=== PATIENT | female | born 1975 | race Caucasian/White ===

== ENCOUNTER 2016-04-20 07:39 | Day surgery (SDC) | payer SELFPAY ==
[~2016-04-20] VITALS: Ht 160 cm; Wt 80.3 kg
[~2016-04-20 07:39] MED LIST: CLARITIN 1010 MG/TAB PO; NORCO 325 MG-51 TAB PO; ULTRAM 50MG TAB50 MG PO
[2016-04-20 08:41] VITALS: BP 124/74; PULSE 55; TEMP 97.9
[2016-04-20 10:10] VITALS: BP 127/86; PULSE 50; TEMP 97.3
[2016-04-20 10:25] VITALS: BP 123/74; PULSE 52
[2016-04-20] MEDS ORDERED: BENTYL 10MG10 MG/CAP PO (10:33)
[2016-04-20] MEDS ORDERED: PRILOSEC 20MG20 MG PO (10:34)
[2016-04-20 10:40] VITALS: BP 131/83; PULSE 54
[2016-04-20 11:27] VITALS: BP 142/74; PULSE 42
[2016-04-20 12:20] VITALS: BP 110/73; PULSE 50
== END 2016-04-20 12:01 | disposition home or self-care (01) ==
LOC: SDCO 07:39
DX: K63.5 Polyp of colon (principal); K64.0 First degree hemorrhoids; K44.9 Diaphragmatic hernia without obstruction or gangrene; K29.60 Other gastritis without bleeding; D64.9 Anemia, unspecified; E11.9 Type 2 diabetes mellitus without complications
CPT/HCPCS: OP; J2250; J3010; J7030

== ENCOUNTER 2016-06-01 17:16 | Emergency (ER) | payer SELFPAY ==
[~2016-06-01] VITALS: Ht 157.5 cm; Wt 78.2 kg
[~2016-06-01 17:16] MED LIST changes: +BENTYL 10MG10 MG/CAP PO; +PRILOSEC 20MG20 MG PO
[2016-06-01 17:20] VITALS: TEMP 99.4
[2016-06-01] MEDS ORDERED: FLEXERIL 1010 MG/TAB PO (17:23)
[2016-06-01] MEDS ORDERED: NORCO 325 MG-51 TAB PO (18:50)
[2016-06-01] MEDS ORDERED: DOXYCYCLINE 10100 MG PO (18:50)
[2016-06-01 18:59] VITALS: BP 130/92; PULSE 82
== END 2016-06-01 19:03 | disposition home or self-care (01) ==
LOC: COL.ER 17:16
DX: S51.851A Open bite of right forearm, initial encounter (principal); W54.0XXA Bitten by dog, initial encounter; Y92.009 Unspecified place in unspecified non-institutional (private) residence as the place of occurrence of the external cause; Z23 Encounter for immunization

== ENCOUNTER → 2016-06-10 | Outpatient (CLI) | payer OTHER ==
[~2016-06-10] MED LIST changes: +DOXYCYCLINE 10100 MG PO; +FLEXERIL 1010 MG/TAB PO; +NATURAL IRON65 MG PO
== END ==
LOC: COL.VAS 12:12
DX: R00.1 Bradycardia, unspecified (principal); R55 Syncope and collapse

== ENCOUNTER → 2016-06-11 | Outpatient (CLI) | payer OTHER | LOC: COL.LAB 12:49 → ZLAB.FHCC 12:49 | DX: R11.10 Vomiting, unspecified (principal); G25.9 Extrapyramidal and movement disorder, unspecified; R10.9 Unspecified abdominal pain; M54.9 Dorsalgia, unspecified ==

== ENCOUNTER → 2016-07-09 | Outpatient (CLI) | payer OTHER ==
[2016-07-09 17:21] LABS: MEAN CELL VOLUME 77 fl (80.0-100.0); MEAN CORPUSCULAR HGB CONC 30 g/dl (33.0-37.0); MEAN PLATELET VOLUME 10.6 fl (7.4-10.4); PLATELET COUNT 389 K/mm3 (130-400); RED BLOOD COUNT 4.35 M/mm3 (4.10-5.30); REDCELL DISTRIBUTION WIDTH-CV 17.3 % (11.5-14.5); WHITE BLOOD COUNT 6.2 K/mm3 (4.8-10.8)
[2016-07-09 17:25] LABS: HEMATOCRIT 33.6 % (37.0-47.0); HEMOGLOBIN 10.1 g/dl (12.5-16.0); MEAN CORPUSCULAR HEMOGLOBIN 23 pg (27.0-31.0)
== END ==
LOC: ZLAB.FHCC 17:16
DX: Z01.89 Encounter for other specified special examinations (principal)

== ENCOUNTER → 2016-08-10 | Outpatient (CLI) | payer SELFPAY ==
[2016-08-10 16:18] LABS: MEAN CELL VOLUME 79 fl (80.0-100.0); MEAN CORPUSCULAR HGB CONC 32 g/dl (33.0-37.0); MEAN PLATELET VOLUME 11.7 fl (7.4-10.4); PLATELET COUNT 373 K/mm3 (130-400); RED BLOOD COUNT 4.63 M/mm3 (4.10-5.30); REDCELL DISTRIBUTION WIDTH-CV 21.7 % (11.5-14.5); WHITE BLOOD COUNT 6.5 K/mm3 (4.8-10.8)
[2016-08-10 16:19] LABS: HEMATOCRIT 36.7 % (37.0-47.0); HEMOGLOBIN 11.7 g/dl (12.5-16.0); MEAN CORPUSCULAR HEMOGLOBIN 25 pg (27.0-31.0)
== END ==
LOC: ZLAB.FHCC 14:48 → COL.LAB 14:48
DX: Z02.89 Encounter for other administrative examinations (principal)

== ENCOUNTER 2016-12-12 20:27 | Emergency (ER) | payer SELFPAY ==
[~2016-12-12] VITALS: Ht 157.5 cm; Wt 76.8 kg
[~2016-12-12 20:27] MED LIST changes: -NATURAL IRON65 MG PO
[2016-12-12 20:28] VITALS: BP 126/83; TEMP 98.1
[2016-12-12] MEDS ORDERED: NATURAL IRON65 MG PO (20:31)
[2016-12-12 21:28] VITALS: PULSE 64
== END 2016-12-12 21:28 | disposition home or self-care (01) ==
LOC: COL.ER 20:27
DX: S92.422A Displaced fracture of distal phalanx of left great toe, initial encounter for closed fracture (principal); S92.512A Displaced fracture of proximal phalanx of left lesser toe(s), initial encounter for closed fracture; Z87.891 Personal history of nicotine dependence; Z98.890 Other specified postprocedural states; W20.8XXA Other cause of strike by thrown, projected or falling object, initial encounter; Y92.512 Supermarket, store or market as the place of occurrence of the external cause

== ENCOUNTER 2017-05-15 20:49 | Emergency (ER) | payer SELFPAY ==
[~2017-05-15] VITALS: Ht 157.5 cm; Wt 79.5 kg
[~2017-05-15 20:49] MED LIST changes: +NATURAL IRON65 MG PO
[2017-05-15 20:51] VITALS: BP 137/83; PULSE 74; TEMP 98.5
== END 2017-05-15 23:08 | disposition home or self-care (01) ==
LOC: COL.ER 20:49
DX: S61.211A Laceration without foreign body of left index finger without damage to nail, initial encounter (principal); M19.90 Unspecified osteoarthritis, unspecified site; F12.90 Cannabis use, unspecified, uncomplicated; W26.0XXA Contact with knife, initial encounter; Y92.009 Unspecified place in unspecified non-institutional (private) residence as the place of occurrence of the external cause

== ENCOUNTER → 2017-08-31 | Outpatient (CLI) | payer SELFPAY ==
[2017-08-31 13:30] LABS: BASO % 0.6 % (0.0-2.0); EOS # 0.2 (0.0-0.7); EOS % 3.5 % (0-4.0); GRAN # 3.1 (1.4-6.5); GRAN % 60.4 % (42.2-75.2); HEMATOCRIT 38.2 % (37.0-47.0); HEMOGLOBIN 12.8 g/dl (12.5-16.0); LYMPH # 1.4 (1.2-3.4); LYMPH % 27.5 % (20.0-51.0); MEAN CELL VOLUME 84 fl (80.0-100.0); MEAN CORPUSCULAR HEMOGLOBIN 28 pg (27.0-31.0); MEAN CORPUSCULAR HGB CONC 34 g/dl (33.0-37.0); MEAN PLATELET VOLUME 10.8 fl (7.4-10.4); MONO # 0.4 (0.1-0.6); MONO % 7.8 % (1.7-9.3); PLATELET COUNT 354 K/mm3 (130-400); RED BLOOD COUNT 4.57 M/mm3 (4.10-5.30); REDCELL DISTRIBUTION WIDTH-CV 15.3 % (11.5-14.5)
[2017-08-31 13:32] LABS: CALCIUM 9.2 mg/dL (8.4-10.2); CREATININE, serum 0.72 mg/dL (0.52-1.25); POTASSIUM 4.6 mmol/L (3.4-5.0)
[2017-08-31 14:03] LABS: THYROID STIMULATING HORMONE 1.01 uIU/mL (0.465-4.680)
== END ==
LOC: ZCOL.LAB 13:19
DX: Z01.89 Encounter for other specified special examinations (principal)

== ENCOUNTER → 2017-11-03 | Outpatient (CLI) | payer SELFPAY | LOC: COL.RAD 09:06 | DX: M79.641 Pain in right hand (principal) ==

== ENCOUNTER 2017-11-10 09:18 | Day surgery (SDC) | payer SELFPAY ==
[~2017-11-10] VITALS: Ht 157.5 cm; Wt 81.0 kg
[2017-11-10 09:41] VITALS: BP 140/87; PULSE 56; TEMP 97.7
[2017-11-10] MEDS ORDERED: OS-CAL 500 + D1 TAB (09:43)
[2017-11-10] MEDS ORDERED: LIORESAL 1010 MG/TAB PO (09:44)
[2017-11-10] MEDS ORDERED: BACTRIM DS 8001 TAB PO (09:44)
[2017-11-10] MEDS ORDERED: DUO-KAPS1 CAP PO (09:45)
[2017-11-10] MEDS ORDERED: TYLENOL 8 HR PO (09:45)
[2017-11-10 12:18] VITALS: BP 95/52; PULSE 50; TEMP 97.3
[2017-11-10] MEDS ORDERED: PHENERGAN 25 TA25 MG PO (12:29)
[2017-11-10] MEDS ORDERED: NORCO 325 MG-7.1 TAB PO (12:29)
[2017-11-10 12:30] VITALS: BP 107/58; PULSE 46
[2017-11-10] MEDS ORDERED: LEVAQUIN 5500 MG/TA1 PO (12:30)
[2017-11-10 12:48] VITALS: BP 103/42; PULSE 81
[2017-11-10 13:03] VITALS: BP 98/40; PULSE 46
== END 2017-11-10 13:35 | disposition home or self-care (01) ==
LOC: SDCO 09:18
DX: G56.02 Carpal tunnel syndrome, left upper limb (principal); Z88.0 Allergy status to penicillin; D64.9 Anemia, unspecified; E11.9 Type 2 diabetes mellitus without complications; Z79.4 Long term (current) use of insulin; Z87.891 Personal history of nicotine dependence; Z83.3 Family history of diabetes mellitus; Z82.49 Family history of ischemic heart disease and other diseases of the circulatory system; Z82.61 Family history of arthritis
CPT/HCPCS: J0690; J2250; J2405; J2704; J3010; J7120

== ENCOUNTER 2017-11-17 05:12 | Emergency (ER) | payer SELFPAY ==
[~2017-11-17] VITALS: Ht 160 cm; Wt 81.8 kg
[~2017-11-17 05:12] MED LIST changes: +BACTRIM DS 8001 TAB PO; +DUO-KAPS1 CAP PO; +LEVAQUIN 5500 MG/TA1 PO; +LIORESAL 1010 MG/TAB PO; +NORCO 325 MG-7.1 TAB PO; +OS-CAL 500 + D1 TAB; +PHENERGAN 25 TA25 MG PO; +TYLENOL 8 HR PO
[2017-11-17 05:13] VITALS: TEMP 97.9
[2017-11-17 06:53] VITALS: BP 138/98; PULSE 56
== END 2017-11-17 07:03 | disposition home or self-care (01) ==
LOC: COL.ER 05:12
DX: S59.901A Unspecified injury of right elbow, initial encounter (principal); W06.XXXA Fall from bed, initial encounter; Y92.009 Unspecified place in unspecified non-institutional (private) residence as the place of occurrence of the external cause
CPT/HCPCS: J1885; J3010; J7030

== ENCOUNTER 2018-02-17 13:37 | Emergency (ER) | payer SELFPAY ==
[~2018-02-17] VITALS: Ht 160 cm; Wt 81.8 kg
[~2018-02-17 13:37] MED LIST changes: +PREDNISONE20 MG PO
[2018-02-17 13:43] VITALS: TEMP 98.6
[2018-02-17 14:23] LABS: COLLECTION METHOD CLEAN CATCH
[2018-02-17 14:46] LABS: MUCOUS Present /lpf; PH 5 (5-8); URINE APPEARANCE Clear; URINE BACTERIA Rare /hpf; URINE BILIRUBIN Negative (NEGATIVE); URINE BLOOD 1+ (NEGATIVE); URINE COLOR Yellow; URINE GLUCOSE Negative (NEGATIVE); URINE KETONE Negative (NEGATIVE); URINE LEUKOCYTE ESTERASE Negative (NEGATIVE); URINE NITRATE Negative (NEGATIVE); URINE PROTEIN(semi-quant) Negative (NEGATIVE)
[2018-02-17 15:11] LABS: BASO % 0.7 % (0.0-2.0); EOS # 0.4 (0.0-0.7); EOS % 7.4 % (0-4.0); GRAN # 2.5 (1.4-6.5); GRAN % 43.8 % (42.2-75.2); HEMOGLOBIN 12.6 g/dl (12.5-16.0); LYMPH # 2.1 (1.2-3.4); LYMPH % 36.7 % (20.0-51.0); MEAN CELL VOLUME 88 fl (80.0-100.0); MEAN CORPUSCULAR HEMOGLOBIN 28 pg (27.0-31.0); MEAN CORPUSCULAR HGB CONC 32 g/dl (33.0-37.0); MEAN PLATELET VOLUME 10.3 fl (7.4-10.4); MONO # 0.6 (0.1-0.6); MONO % 11.2 % (1.7-9.3); PLATELET COUNT 371 K/mm3 (130-400); RED BLOOD COUNT 4.45 M/mm3 (4.10-5.30); REDCELL DISTRIBUTION WIDTH-CV 15.3 % (11.5-14.5)
[2018-02-17 15:20] LABS: ALANINE AMINOTRANSFERASE 17 U/L (9-52); ALBUMIN 3.8 gm/dL (3.5-5.0); ALKALINE PHOSPHATASE 42 U/L (50-136); ANION GAP 1 mmol/L (7-16); AST,SGOT 16 U/L (15-37); BILIRUBIN,TOTAL < 0.1 mg/dL (0.0-1.0); BLOOD UREA NITROGEN 17 mg/dL (7-17); CALCIUM 9.1 mg/dL (8.4-10.2); CARBON DIOXIDE 32 mmol/L (22-30); CHLORIDE 106 mmol/L (98-107); CREATININE, serum 0.68 mg/dL (0.52-1.25); GLUCOSE 83 mg/dL (74-106); POTASSIUM 4.6 mmol/L (3.4-5.0); SODIUM 140 mmol/L (137-145); TOTAL PROTEIN 6.8 gm/dL (6.4-8.2)
[2018-02-17] MEDS ORDERED: NORCO 325 MG-7.1 TAB PO (16:24)
[2018-02-17 16:41] VITALS: BP 132/80; PULSE 70
== END 2018-02-17 16:41 | disposition home or self-care (01) ==
LOC: COL.ER 13:37
PROVIDERS: Physician Assistant
DX: R10.9 Unspecified abdominal pain (principal); Z98.890 Other specified postprocedural states; Z88.0 Allergy status to penicillin; Z87.891 Personal history of nicotine dependence; Z90.89 Acquired absence of other organs

== ENCOUNTER → 2018-02-25 | Outpatient (CLI) | payer SELFPAY | LOC: COL.RAD 09:07 | DX: K21.9 Gastro-esophageal reflux disease without esophagitis (principal); K44.9 Diaphragmatic hernia without obstruction or gangrene ==

== ENCOUNTER → 2018-08-17 | Outpatient (CLI) | payer SELFPAY | LOC: COL.PUL 08:00 | DX: R06.02 Shortness of breath (principal); R00.1 Bradycardia, unspecified; Z87.891 Personal history of nicotine dependence; Z77.22 Contact with and (suspected) exposure to environmental tobacco smoke (acute) (chronic) ==

== ENCOUNTER → 2018-12-15 | Outpatient (CLI) | payer OTHER ==
[2018-12-15 17:43] LABS: HEMATOCRIT 37.2 % (37.0-47.0); HEMOGLOBIN 11.9 g/dl (12.5-16.0); MEAN CELL VOLUME 87 fl (80.0-100.0); MEAN CORPUSCULAR HEMOGLOBIN 28 pg (27.0-31.0); MEAN CORPUSCULAR HGB CONC 32 g/dl (33.0-37.0); PLATELET COUNT 389 K/mm3 (130-400); RED BLOOD COUNT 4.28 M/mm3 (4.10-5.30); REDCELL DISTRIBUTION WIDTH-CV 17.2 % (11.5-14.5)
[2018-12-15 17:53] LABS: BILIRUBIN,TOTAL 0.2 mg/dL (0.0-1.0); CALCIUM 9.9 mg/dL (8.4-10.2); CREATININE, serum 1.09 (0.52-1.25); TOTAL PROTEIN 6.8 gm/dL (6.4-8.2)
[2018-12-15 18:24] LABS: THYROID STIMULATING HORMONE 0.907 uIU/mL (0.465-4.680)
== END ==
LOC: ZCOL.LAB 16:18
PROVIDERS: Family Medicine
DX: D64.9 Anemia, unspecified (principal); R00.1 Bradycardia, unspecified; R25.2 Cramp and spasm

== ENCOUNTER → 2019-02-09 | Outpatient (CLI) | payer OTHER | LOC: COL.RAD 13:05 | DX: M47.812 Spondylosis without myelopathy or radiculopathy, cervical region (principal); M48.02 Spinal stenosis, cervical region ==

== ENCOUNTER → 2019-03-30 | Outpatient (CLI) | payer SELFPAY ==
[2019-03-30 12:47] LABS: BASO % 0.7 % (0.0-2.0); EOS # 0.3 (0.0-0.7); EOS % 5.5 % (0-4.0); GRAN # 3.1 (1.4-6.5); GRAN % 51.1 % (42.2-75.2); HEMATOCRIT 37.2 % (37.0-47.0); HEMOGLOBIN 11.8 g/dl (12.5-16.0); LYMPH # 1.9 (1.2-3.4); LYMPH % 31.7 % (20.0-51.0); MEAN CELL VOLUME 84 fl (80.0-100.0); MEAN CORPUSCULAR HEMOGLOBIN 27 pg (27.0-31.0); MEAN CORPUSCULAR HGB CONC 32 g/dl (33.0-37.0); MEAN PLATELET VOLUME 10.2 fl (7.4-10.4); MONO # 0.7 (0.1-0.6); MONO % 10.8 % (1.7-9.3); PLATELET COUNT 370 K/mm3 (130-400); RED BLOOD COUNT 4.42 M/mm3 (4.10-5.30); REDCELL DISTRIBUTION WIDTH-CV 15.7 % (11.5-14.5)
[2019-03-30 12:59] LABS: ALBUMIN 3.8 gm/dL (3.5-5.0); BILIRUBIN,TOTAL 0.1 mg/dL (0.0-1.0); CALCIUM 8.8 mg/dL (8.4-10.2); CREATININE, serum 0.78 (0.52-1.25); POTASSIUM 4.3 mmol/L (3.4-5.0); TOTAL PROTEIN 6.8 gm/dL (6.4-8.2)
== END ==
LOC: COL.LAB 11:41
DX: R11.2 Nausea with vomiting, unspecified (principal); R10.9 Unspecified abdominal pain; D64.9 Anemia, unspecified

== ENCOUNTER → 2019-03-30 | Outpatient (CLI) | payer SELFPAY ==
[2019-03-31 00:22] LABS: FOLATE (FOLIC ACID) 10.4 ng/mL (7.0-31.4)
== END ==
LOC: COL.LAB 11:30
PROVIDERS: Family Medicine
DX: M47.816 Spondylosis without myelopathy or radiculopathy, lumbar region (principal); D64.9 Anemia, unspecified; M51.36 Other intervertebral disc degeneration, lumbar region

== ENCOUNTER 2019-05-03 05:41 | Day surgery (SDC) | payer SELFPAY ==
[~2019-05-03] VITALS: Ht 160 cm; Wt 78.8 kg
[2019-05-03] MEDS ORDERED: VALU-DRYL ALLER25 MG PO ×2 (06:29→06:33)
[2019-05-03 06:34] VITALS: BP 149/93; PULSE 52; TEMP 98.2
[2019-05-03 08:10] VITALS: BP 151/90; PULSE 47; TEMP 97.7
--- NOTE | 2019-05-03 08:10 | NUR ---
Pt arrived back to room via cart with Endo RN. Received report at bedside with patient. Pt is awake, alert, and oriented and denies pain or nausea. Muffin and juice brought per request. VSS. BP a little elevate and HR James, however, pt states that her HR usually runs low. Pt denies symptoms including dizziness. Cap refill less than 3. Call light at bedside and in room. Dr. Whitehead at bedside reviewing procedure with family.
[2019-05-03 08:25] VITALS: BP 125/88; PULSE 49
--- NOTE | 2019-05-03 08:25 | NUR ---
Pt continues to rest. Tolerating food and fluids without difficulties. Will continue to monitor. Call light within reach.
[2019-05-03 08:28] VITALS: TEMP 97.7
[2019-05-03 08:40] VITALS: BP 152/82; PULSE 53
--- NOTE | 2019-05-03 08:40 | NUR ---
Discharge instructions reviewed. Pt voices understanding. IV site discontinued with all parts intact. Pt up to dress. Call light within reach.
--- NOTE | 2019-05-03 09:00 | NUR ---
Pt escorted out to private car via wheel chair. Pt accompanied home by her .
== END 2019-05-03 09:00 | disposition home or self-care (01) ==
LOC: SDCO 05:41
DX: K29.70 Gastritis, unspecified, without bleeding (principal); K29.80 Duodenitis without bleeding; K44.9 Diaphragmatic hernia without obstruction or gangrene; K22.4 Dyskinesia of esophagus; E11.9 Type 2 diabetes mellitus without complications; R19.7 Diarrhea, unspecified; I50.9 Heart failure, unspecified; K21.9 Gastro-esophageal reflux disease without esophagitis; F41.9 Anxiety disorder, unspecified; Z87.891 Personal history of nicotine dependence; Z88.0 Allergy status to penicillin
CPT/HCPCS: J2250; J2704; J7030

== ENCOUNTER → 2019-08-30 | Outpatient (CLI) | payer SELFPAY ==
[~2019-08-30] MED LIST changes: +VALU-DRYL ALLER25 MG PO
== END ==
LOC: COL.RAD 07:51
DX: K44.9 Diaphragmatic hernia without obstruction or gangrene (principal)
CPT/HCPCS: Q9967

== ENCOUNTER 2019-09-19 10:49 | Inpatient (IN) | payer SELFPAY ==
[~2019-09-19] VITALS: Ht 160 cm; Wt 83.4 kg
[2019-09-19] VITALS (8 sets, daily range): BP systolic 147–198; BP diastolic 82–101; PULSE 55–65; TEMP 97.7–98.3
[2019-09-19] MEDS ORDERED: KLONOPIN WAFE0.25 MG PO (12:16)
[2019-09-19] MEDS ORDERED: MOTRIN 400400 MG/TAB PO (12:17)
[2019-09-19] MEDS ORDERED: IRON TABLETS325 MG PO (12:17)
[2019-09-19] MEDS ORDERED: VITAMIN D31000 I1 PO (12:18)
--- NOTE | 2019-09-19 17:30 | NUR ---
Patient arrived to floor from PACU via bed. Patient is alert and oriented. Post op checks initiated. Patient is having significant anxiety about pressure in her shoulders and neck. Educated patient on gas pain associated with robotic surgery and encouraged her to get up and ambulate with assist as soon as possible. Patient denies further needs at this time, call light within reach.
[2019-09-20 00:22] VITALS: BP 154/78; PULSE 77; TEMP 97.6
[2019-09-20 04:00] VITALS: BP 130/90; PULSE 47; TEMP 97.5
[2019-09-20 07:07] VITALS: BP 158/87; PULSE 50; TEMP 97.6
[2019-09-20 07:18] LABS: ALBUMIN 3.9 gm/dL (3.5-5.0); BILIRUBIN,TOTAL 0.9 mg/dL (0.0-1.0); CALCIUM 8.6 mg/dL (8.4-10.2); CREATININE, serum 0.61 (0.52-1.25); TOTAL PROTEIN 7.2 gm/dL (6.4-8.2)
[2019-09-20 07:28] LABS: BASO % 0.4 % (0.0-2.0); EOS # 0.1 (0.0-0.7); EOS % 1.2 % (0-4.0); GRAN % 69.5 % (42.2-75.2); HEMATOCRIT 38.9 % (37.0-47.0); HEMOGLOBIN 12.3 g/dl (12.5-16.0); LYMPH # 1.4 (1.2-3.4); MEAN CELL VOLUME 82 fl (80.0-100.0); MEAN CORPUSCULAR HEMOGLOBIN 26 pg (27.0-31.0); MEAN CORPUSCULAR HGB CONC 32 g/dl (33.0-37.0); MEAN PLATELET VOLUME 11.3 fl (7.4-10.4); MONO # 0.7 (0.1-0.6); MONO % 9.6 % (1.7-9.3); PLATELET COUNT 315 K/mm3 (130-400); RED BLOOD COUNT 4.77 M/mm3 (4.10-5.30); REDCELL DISTRIBUTION WIDTH-CV 20.1 % (11.5-14.5)
--- NOTE | 2019-09-20 09:30 | NUR ---
Patient has been sleeping intermittently this morning. Patient c/o 6/10 pain while awake, falls asleep quickly but rouses easily. Administered PO pain medication per order, patient taking PO well. Patient c/o discomfort associated with subcutaneous emphysema, states that she feels she can't breathe, feels pressure, and hears popping. Crepitus is present in chest, shoulders, and neck upon palpation, but appears to be lessened from yesterday evening. Breath sounds are present and equal bilaterally in all carter. Educated patient about gas pain associated with robotic surgeries and that it can cause shoulder pain, encouraged patient to ambulate in order to lessen gas pain. Patient declines walk at this time, call light within reach, denies further needs.
--- NOTE | 2019-09-20 11:32 | NUR ---
TERESA met with the patient and her , David (ph#[phone]), to discuss discharge plan. The patient lives in [place] with her and fourteen- year-old son. She reports independence with ADLs and does not have any DME. The patient receives primary care at [facility] and she receives her medications at [facility]. She reports difficulties affording her meds. She states that [facility] provides her with some presciption assistance. The patient is self pay. SW to consult Financial Counseling. The patient does not have advanced directives and she was not interested in completing them at this time. The patient plans to return home with her family upon discharge. No additional needs at this time.
--- NOTE | 2019-09-20 11:57 | NUR ---
First visit from the eyewear manufacturing tech. No needs right now.
[2019-09-20 12:22] VITALS: BP 161/102; BP 175/90; PULSE 52; TEMP 97.3
--- NOTE | 2019-09-20 14:27 | NUR ---
Patient ambulated in hallway with SBA. Administered PRN pain medication per order. Patient resting comfortably in bed at this time, denies further needs at this time, call light within reach.
[2019-09-20 15:41] VITALS: BP 137/72; PULSE 51; TEMP 97.6
--- NOTE | 2019-09-20 18:22 | NUR ---
Patient resting in bed eating dinner at this time. Patient remains alert and oriented, answers questions appropriately. Patient is ambulating independently in her room and the hallway. Patient is reporting she is more comfortable and pain is controlled at this time, call light within reach.
[2019-09-20 19:25] VITALS: BP 120/97; PULSE 56; TEMP 97.2
--- NOTE | 2019-09-20 19:50 | NUR ---
PT COMPLAINS OF NECK PAIN AND ABD DISCOMFORT. HAS SUBQ EMPHYSEMA TO CHEST, NECK AND FACE. MEDICATED WITH PERCOCET 2 TABS PO AT THIS TIME. SL TO LEFT HAND WITHOUT REDNESS OR SWELLING. UP AD NAFISA IN ROOM AND HALLWAY. VOIDING WITHOUT PROBLEM. LAP SITES D/I.
--- NOTE | 2019-09-20 21:30 | NUR ---
PT WAS AMBULATING IN HALLWAY, BECAME DISORIENTED AND WAS BROUGHT FROM IPR UNIT BACK TO HER ROOM. PT STATES SHE SLEEP WALKS AT TIMES. REPORTS ANXIETY WITH BREATHING AND SWELLING OF NECK.
--- NOTE | 2019-09-20 21:59 | NUR ---
ATIVAN 0.5MG PO GIVEN WELL TORADOL 15MG. COMPLAINS OF SORENESS TO LEFT HAND, DC'D WITH ANGIOCATH INTACT.
[2019-09-21 00:47] VITALS: BP 146/88; PULSE 51; TEMP 97.5
--- NOTE | 2019-09-21 01:00 | NUR ---
New IV site placed to left wrist, #22 insyte inserted on first attempt. Pt tolerated without problem.
--- NOTE | 2019-09-21 04:22 | NUR ---
Medicated with Percocet 2 tabs at this time for chest discomfort.
[2019-09-21 04:23] VITALS: BP 151/93; PULSE 56; TEMP 97.5
[2019-09-21 07:29] VITALS: BP 156/79; PULSE 52; TEMP 97.6
--- NOTE | 2019-09-21 09:00 | NUR ---
Patient resting in bed at this time. Patient rouses easily and is alert and oriented while awake. Patient reports that pain is well controlled at this time, but did request PRN anti anxiety due to pressure from subcutaneous emphysema. Swelling in patient's chest, neck, and jaw are markedly decreased from yesterday, crepitus is still paplable. Incisions are well approximated, no indication of drainage. Breath sounds are present and equal bilaterally. Patient denies further needs at this time, call light within reach.
[2019-09-21 09:23] LABS: BASO % 0.2 % (0.0-2.0); EOS # 0.1 (0.0-0.7); EOS % 2.5 % (0-4.0); GRAN % 75.9 % (42.2-75.2); HEMATOCRIT 34.4 % (37.0-47.0); HEMOGLOBIN 10.8 g/dl (12.5-16.0); LYMPH # 0.7 (1.2-3.4); LYMPH % 13.4 % (20.0-51.0); MEAN CELL VOLUME 82 fl (80.0-100.0); MEAN CORPUSCULAR HEMOGLOBIN 26 pg (27.0-31.0); MEAN CORPUSCULAR HGB CONC 31 g/dl (33.0-37.0); MONO # 0.4 (0.1-0.6); MONO % 7.6 % (1.7-9.3); PLATELET COUNT 347 K/mm3 (130-400); RED BLOOD COUNT 4.19 M/mm3 (4.10-5.30); REDCELL DISTRIBUTION WIDTH-CV 19.8 % (11.5-14.5)
[2019-09-21 09:46] LABS: CALCIUM 8.7 mg/dL (8.4-10.2); CREATININE, serum 0.6 (0.52-1.25)
[2019-09-21 12:47] VITALS: BP 150/81; PULSE 61; TEMP 98.2
[2019-09-21] MEDS ORDERED: MOTRIN 600600 MG/TAB PO (14:12)
[2019-09-21] MEDS ORDERED: PERCOCET 325 MG1 TA2 PO (14:12)
[2019-09-21] MEDS ORDERED: PRILOTC PO (14:13)
--- NOTE | 2019-09-21 15:39 | NUR ---
The patient is being prescribed three medications upon discharge. She reports that she would not be able to afford these. TERESA provided the patient with a med voucher to [facility] for $24.55. TERESA contacted and faxed the script and med voucher to [facility]. No additional needs at this time.
--- NOTE | 2019-09-21 16:41 | NUR ---
Discharge teaching completed. Discussed follow up appointment, discharge diet, discharge medications, and discharge instructions. Patient's took scripts and voucher to get them filled. Patient denies questions or needs and is currently gathering belongings, will notify staff when her returns for her so she can be walked out.
== END 2019-09-21 17:03 | disposition home or self-care (01) | DRG 328 ==
LOC: SDCO 10:49 → SURG 15:54
PROVIDERS: ADMIT Surgery
PROC: 0DQ44ZZ Repair Esophagogastric Junction, Percutaneous Endoscopic Approach (ICD-10-PCS; 2019-09-19)
PROC: 8E0W4CZ Robotic Assisted Procedure of Trunk Region, Percutaneous Endoscopic Approach (ICD-10-PCS; 2019-09-19)
PROC: 0BQT4ZZ Repair Diaphragm, Percutaneous Endoscopic Approach (ICD-10-PCS; principal; 2019-09-19 12:30)
DX: K44.9 Diaphragmatic hernia without obstruction or gangrene (principal); J43.9 Emphysema, unspecified; K21.9 Gastro-esophageal reflux disease without esophagitis; F41.9 Anxiety disorder, unspecified; I10 Essential (primary) hypertension
CPT/HCPCS: A9284; C9113; J1170; J1885; J2405; J2704; J3010; J7120

== ENCOUNTER 2019-09-29 08:54 | Emergency (ER) | payer SELFPAY ==
[~2019-09-29] VITALS: Ht 160 cm; Wt 86.4 kg
[~2019-09-29 08:54] MED LIST changes: +IRON TABLETS325 MG PO; +KLONOPIN WAFE0.25 MG PO; +MOTRIN 400400 MG/TAB PO; +MOTRIN 600600 MG/TAB PO; +PERCOCET 325 MG1 TA2 PO; +PRILOTC PO; +VITAMIN D31000 I1 PO
[2019-09-29 09:08] VITALS: TEMP 98.1
[2019-09-29 09:54] LABS: BASO # 0.1 (0.0-0.2); BASO % 0.8 % (0.0-2.0); EOS # 0.7 (0.0-0.7); EOS % 10.8 % (0-4.0); GRAN # 3.8 (1.4-6.5); GRAN % 57.1 % (42.2-75.2); HEMOGLOBIN 11.3 g/dl (12.5-16.0); LYMPH # 1.5 (1.2-3.4); LYMPH % 22.1 % (20.0-51.0); MEAN CELL VOLUME 83 fl (80.0-100.0); MEAN CORPUSCULAR HEMOGLOBIN 26 pg (27.0-31.0); MEAN CORPUSCULAR HGB CONC 31 g/dl (33.0-37.0); MEAN PLATELET VOLUME 9.6 fl (7.4-10.4); MONO # 0.6 (0.1-0.6); MONO % 8.9 % (1.7-9.3); PLATELET COUNT 356 K/mm3 (130-400); RED BLOOD COUNT 4.35 M/mm3 (4.10-5.30); REDCELL DISTRIBUTION WIDTH-CV 18.8 % (11.5-14.5)
[2019-09-29 10:06] LABS: COLLECTION METHOD CLEAN CATCH
[2019-09-29 10:12] LABS: ALANINE AMINOTRANSFERASE 28 U/L (4-34); ALBUMIN 3.9 gm/dL (3.5-5.0); ALKALINE PHOSPHATASE 50 U/L (50-136); ANION GAP 5 mmol/L (7-16); AST,SGOT 25 U/L (15-37); BILIRUBIN,TOTAL 0.3 mg/dL (0.0-1.0); BLOOD UREA NITROGEN 21 mg/dL (7-17); CALCIUM 8.8 mg/dL (8.4-10.2); CARBON DIOXIDE 25 mmol/L (22-30); CHLORIDE 107 mmol/L (98-107); CREATININE, serum 0.74 (0.52-1.25); GLUCOSE 99 mg/dL (74-106); LIPASE 69 U/L (23-300); POTASSIUM 4.6 mmol/L (3.4-5.0); SODIUM 137 mmol/L (137-145); TOTAL PROTEIN 7.2 gm/dL (6.4-8.2)
[2019-09-29 10:20] LABS: PH 7 (5-8); SQUAMOUS EPITHELIAL 0-2 /hpf; URINE APPEARANCE Clear; URINE BACTERIA None Seen /hpf; URINE BILIRUBIN Negative (NEGATIVE); URINE BLOOD Negative (NEGATIVE); URINE COLOR Yellow; URINE GLUCOSE Negative (NEGATIVE); URINE KETONE Negative (NEGATIVE); URINE LEUKOCYTE ESTERASE Negative (NEGATIVE); URINE NITRATE Negative (NEGATIVE); URINE PROTEIN(semi-quant) Negative (NEGATIVE); URINE RBC 0-2 /hpf; URINE UROBILINOGEN Negative (NEGATIVE)
[2019-09-29 10:24] LABS: C-REACTIVE PROTEIN < 0.5 mg/dL (0.0-0.9)
[2019-09-29] MEDS ORDERED: ZOFRAN ODT8 MG PO (11:46)
[2019-09-29 11:59] VITALS: BP 139/87; PULSE 46
== END 2019-09-29 12:03 | disposition home or self-care (01) ==
LOC: COL.ER 08:54
PROVIDERS: Emergency Medicine
DX: R10.9 Unspecified abdominal pain (principal); R58 Hemorrhage, not elsewhere classified; R11.2 Nausea with vomiting, unspecified
CPT/HCPCS: J2270; J2405; J7030; Q9967

== ENCOUNTER 2019-10-03 01:47 | Emergency (ER) | payer SELFPAY ==
[~2019-10-03] VITALS: Ht 157.5 cm; Wt 81.8 kg
[~2019-10-03 01:47] MED LIST changes: +ZOFRAN ODT8 MG PO
[2019-10-03 01:49] VITALS: TEMP 98.1
[2019-10-03 02:07] LABS: BASO # 0.1 (0.0-0.2); BASO % 0.8 % (0.0-2.0); EOS # 0.2 (0.0-0.7); EOS % 2.7 % (0-4.0); GRAN # 6.6 (1.4-6.5); GRAN % 73.3 % (42.2-75.2); HEMATOCRIT 41.5 % (37.0-47.0); LYMPH # 1.5 (1.2-3.4); LYMPH % 16.5 % (20.0-51.0); MEAN CELL VOLUME 82 fl (80.0-100.0); MEAN CORPUSCULAR HEMOGLOBIN 26 pg (27.0-31.0); MEAN CORPUSCULAR HGB CONC 31 g/dl (33.0-37.0); MEAN PLATELET VOLUME 10.1 fl (7.4-10.4); MONO # 0.6 (0.1-0.6); MONO % 6.4 % (1.7-9.3); PLATELET COUNT 354 K/mm3 (130-400); RED BLOOD COUNT 5.08 M/mm3 (4.10-5.30); REDCELL DISTRIBUTION WIDTH-CV 19.2 % (11.5-14.5)
[2019-10-03 02:15] LABS: ALBUMIN 4.8 gm/dL (3.5-5.0); BILIRUBIN,TOTAL 0.4 mg/dL (0.0-1.0); CALCIUM 9.6 mg/dL (8.4-10.2); CREATININE, serum 0.74 (0.52-1.25); POTASSIUM 4.1 mmol/L (3.4-5.0); TOTAL PROTEIN 8.6 gm/dL (6.4-8.2)
[2019-10-03] MEDS ORDERED: COLACE 100100 MG/CAP PO (03:21)
[2019-10-03] MEDS ORDERED: MIRALAX238G PO (03:21)
[2019-10-03 03:22] VITALS: BP 173/90; PULSE 52
== END 2019-10-03 03:15 | disposition home or self-care (01) ==
LOC: COL.ER 01:47
PROVIDERS: Emergency Medicine
DX: G89.18 Other acute postprocedural pain (principal); K59.00 Constipation, unspecified; R11.0 Nausea; R19.8 Other specified symptoms and signs involving the digestive system and abdomen; E11.9 Type 2 diabetes mellitus without complications; Z87.891 Personal history of nicotine dependence
CPT/HCPCS: J1885; J2270; J2550; J7030

== ENCOUNTER 2020-03-01 13:59 | Emergency (ER) | payer SELFPAY ==
[~2020-03-01 13:59] MED LIST changes: +COLACE 100100 MG/CAP PO; +MIRALAX238G PO
== END 2020-03-01 14:21 | disposition left against medical advice (07) ==
LOC: COL.ER 13:59
DX: Z72.89 Other problems related to lifestyle (principal)

== ENCOUNTER → 2020-05-21 | Outpatient (CLI) | payer SELFPAY | LOC: COL.RAD 08:15 | DX: M47.22 Other spondylosis with radiculopathy, cervical region (principal); M48.02 Spinal stenosis, cervical region; R41.89 Other symptoms and signs involving cognitive functions and awareness ==

== ENCOUNTER 2020-09-22 09:50 | Emergency (ER) | payer SELFPAY ==
[~2020-09-22] VITALS: Ht 160 cm; Wt 77.3 kg
[2020-09-22 09:59] VITALS: BP 118/64; TEMP 98
[2020-09-22] MEDS ORDERED: NORCO 325 MG-51 TAB PO (10:57)
[2020-09-22 11:04] VITALS: PULSE 59
== END 2020-09-22 11:06 | disposition home or self-care (01) ==
LOC: COL.ER 09:50
DX: S63.601A Unspecified sprain of right thumb, initial encounter (principal); Z87.891 Personal history of nicotine dependence; W19.XXXA Unspecified fall, initial encounter

== ENCOUNTER → 2021-05-26 | Outpatient (CLI) | payer SELFPAY | LOC: COL.RAD 08:14 | DX: M51.27 Other intervertebral disc displacement, lumbosacral region (principal); M48.07 Spinal stenosis, lumbosacral region ==

== ENCOUNTER 2021-07-14 08:33 | Outpatient (RCR) | payer SELFPAY | END 2021-08-09 | disposition still patient (30) | LOC: MKS.ESL.PT | DX: M54.41 Lumbago with sciatica, right side (principal); G89.29 Other chronic pain; M54.12 Radiculopathy, cervical region ==

== ENCOUNTER 2021-07-22 14:11 | Emergency (ER) | payer SELFPAY ==
[~2021-07-22] VITALS: Ht 157.5 cm; Wt 77.3 kg
[2021-07-22 15:12] LABS: BASO % 0.2 % (0.0-2.0); GRAN # 4.4 K/mm3 (1.4-6.5); GRAN % 78.2 % (42.2-75.2); HEMATOCRIT 41.8 % (37.0-47.0); HEMOGLOBIN 14.3 g/dl (12.5-16.0); LYMPH # 0.8 K/mm3 (1.2-3.4); LYMPH % 13.7 % (20.0-51.0); MEAN CELL VOLUME 78 fl (80.0-100.0); MEAN CORPUSCULAR HEMOGLOBIN 27 pg (27-31); MEAN CORPUSCULAR HGB CONC 34 g/dl (33.0-37.0); MEAN PLATELET VOLUME 10.5 fl (7.4-10.4); MONO # 0.4 K/mm3 (0.1-0.6); MONO % 7.7 % (1.7-9.3); PLATELET COUNT 425 K/mm3 (130-400); RED BLOOD COUNT 5.33 M/mm3 (4.10-5.30); REDCELL DISTRIBUTION WIDTH-CV 15.9 % (11.5-14.5)
[2021-07-22 15:31] LABS: C-REACTIVE PROTEIN 0.05 mg/dL (0.00-0.50)
[2021-07-22 16:04] LABS: ALANINE AMINOTRANSFERASE 18 U/L (0-55); ALKALINE PHOSPHATASE 63 U/L (40-150); ANION GAP 11 mmol/L (7-16); AST,SGOT 14 U/L (5-34); BLOOD UREA NITROGEN 9 mg/dL (7-19); CALCIUM 9.1 mg/dL (8.4-10.2); CARBON DIOXIDE 23 mmol/L (22-29); CHLORIDE 100 mmol/L (98-107); CREATININE, serum 0.75 mg/dL (0.57-1.11); GLUCOSE 117 mg/dL (70-99); POTASSIUM 4.3 mmol/L (3.5-4.5); SODIUM 134 mmol/L (136-145); TOTAL PROTEIN 7.7 gm/dL (6.2-8.1)
[2021-07-22 16:13] LABS: BILIRUBIN,TOTAL < 0.5 mg/dL (0.2-1.2)
[2021-07-22 16:21] LABS: COLLECTION METHOD CLEAN CATCH
[2021-07-22 16:29] LABS: MUCOUS Present (NOT PRESENT); PH 7 (5-8); URINE APPEARANCE Hazy (CLEAR/HAZY); URINE BACTERIA None Seen /hpf (NONE SEEN); URINE BILIRUBIN Negative (NEGATIVE); URINE BLOOD Negative (NEGATIVE); URINE COLOR Yellow (YELLOW); URINE GLUCOSE Negative (NEGATIVE); URINE KETONE Negative (NEGATIVE); URINE LEUKOCYTE ESTERASE Negative (NEGATIVE); URINE NITRATE Negative (NEGATIVE); URINE PROTEIN(semi-quant) Negative (NEGATIVE); URINE RBC None Seen /hpf (0-2); URINE UROBILINOGEN Negative (NEGATIVE)
[2021-07-22 18:10] VITALS: BP 158/99; PULSE 56; TEMP 99
== END 2021-07-22 18:15 | disposition home or self-care (01) ==
LOC: COL.ER 14:11
PROVIDERS: Family Medicine; Nurse Practitioner Primary Care
DX: J10.1 Influenza due to other identified influenza virus with other respiratory manifestations (principal); F17.210 Nicotine dependence, cigarettes, uncomplicated
CPT/HCPCS: J2405; J7030

== ENCOUNTER 2021-07-27 22:33 | Emergency (ER) | payer SELFPAY ==
[~2021-07-27] VITALS: Ht 160 cm; Wt 77.3 kg
[2021-07-27 22:40] VITALS: TEMP 98.4
[2021-07-28 00:46] VITALS: BP 142/99; PULSE 87
== END 2021-07-28 00:46 | disposition home or self-care (01) ==
LOC: COL.ER 22:33
DX: F45.8 Other somatoform disorders (principal)
CPT/HCPCS: J2060; Q9967

== ENCOUNTER 2021-09-23 14:14 | Outpatient (RCR) | payer SELFPAY | END 2021-09-23 14:15 | disposition home or self-care (01) | LOC: MKS.ESL.PT 14:14 | DX: M54.12 Radiculopathy, cervical region (principal); M54.41 Lumbago with sciatica, right side ==

== ENCOUNTER → 2022-09-10 | Outpatient (CLI) | payer SELFPAY | LOC: COL.RAD 07:30 | DX: M51.16 Intervertebral disc disorders with radiculopathy, lumbar region (principal); M51.17 Intervertebral disc disorders with radiculopathy, lumbosacral region; M16.11 Unilateral primary osteoarthritis, right hip; M25.451 Effusion, right hip; M25.512 Pain in left shoulder; G62.9 Polyneuropathy, unspecified ==

== ENCOUNTER 2023-06-01 09:51 | Emergency (ER) | payer SELFPAY ==
[~2023-06-01] VITALS: Ht 167.6 cm; Wt 81.8 kg
[2023-06-01 09:59] VITALS: TEMP 98.2
[2023-06-01] MEDS ORDERED: DOXYCYCLINE 10100 MG PO (10:39)
[2023-06-01] MEDS ORDERED: droPERidol 2.5 MG/ML 2 ML VIAL IM ONE (10:45)
[2023-06-01 11:38] VITALS: BP 174/85; PULSE 81
== END 2023-06-01 11:39 | disposition home or self-care (01) ==
LOC: COL.ER 09:51
DX: H66.92 Otitis media, unspecified, left ear (principal); Z87.891 Personal history of nicotine dependence; Z88.0 Allergy status to penicillin
CPT/HCPCS: J1790

== ENCOUNTER 2023-10-08 13:43 | Emergency (ER) | payer OTHER ==
[~2023-10-08] VITALS: Ht 160 cm; Wt 65.9 kg
[2023-10-08 13:47] VITALS: TEMP 98.2
[2023-10-08 14:15] LABS: BASO % 0.4 % (0.0-2.0); EOS # 0.1 K/mm3 (0.0-0.7); EOS % 0.9 % (0.0-4.0); GRAN # 5.2 K/mm3 (1.4-6.5); GRAN % 70.6 % (42.2-75.2); HEMATOCRIT 38.1 % (37.0-47.0); HEMOGLOBIN 12.1 g/dl (12.5-16.0); LYMPH # 1.3 K/mm3 (1.2-3.4); LYMPH % 17.7 % (20.0-51.0); MEAN CELL VOLUME 80 fl (80.0-100.0); MEAN CORPUSCULAR HEMOGLOBIN 26 pg (27-31); MEAN CORPUSCULAR HGB CONC 32 g/dl (33.0-37.0); MEAN PLATELET VOLUME 10.8 fl (7.4-10.4); MONO # 0.8 K/mm3 (0.1-0.6); MONO % 10.1 % (1.7-9.3); PLATELET COUNT 366 K/mm3 (130-400); RED BLOOD COUNT 4.74 M/mm3 (4.10-5.30); REDCELL DISTRIBUTION WIDTH-CV 18.8 % (11.5-14.5)
[2023-10-08] MEDS ORDERED: Pantoprazole 40 MG in NS 10 ML IV ONE (14:15)
[2023-10-08] MEDS ORDERED: Mag/Al Hydrox/Simeth Susp 30 ML CUP PO ONE (14:15)
[2023-10-08] MEDS ORDERED: fentaNYL 50 MCG/ML 2 ML VIAL IV ONE ×2 (14:45→15:30)
[2023-10-08] MEDS ORDERED: Ondansetron 4 MG/2 ML VIAL IV ONE (14:45)
[2023-10-08 14:58] LABS: ALANINE AMINOTRANSFERASE 12 U/L (0-55); ALBUMIN 4.3 g/dL (3.5-5.0); ALKALINE PHOSPHATASE 58 U/L (40-150); ANION GAP 12 mmol/L (7-16); AST,SGOT 14 U/L (5-34); BILIRUBIN,TOTAL 0.4 mg/dL (0.2-1.2); BLOOD UREA NITROGEN 10 mg/dL (7-19); C-REACTIVE PROTEIN 0.03 mg/dL (0.00-0.50); CALCIUM 10.1 mg/dL (8.4-10.2); CHLORIDE 104 mEq/L (98-107); CREATININE, serum 0.85 mg/dL (0.57-1.11); GLUCOSE 114 mg/dL (70-99); POTASSIUM 3.4 mEq/L (3.5-4.5); SODIUM 140 mEq/L (136-145); TOTAL PROTEIN 7.6 g/dl (6.2-8.1)
[2023-10-08 15:08] LABS: TROPONIN-I < 0.010 ng/mL (0.00-0.033)
[2023-10-08] MEDS ORDERED: hydrALAZINE 20 MG/ML 1 ML VIAL IV ONE (15:30)
[2023-10-08] MEDS ORDERED: HYDROmorphone 0.5 MG/0.5 ML SYRINGE IV ONE ×2 (16:00→19:00)
[2023-10-08 16:52] LABS: COLLECTION METHOD CLEAN CATCH
[2023-10-08 17:01] LABS: PH 7.5 (5.0-8.5); URINE APPEARANCE CLOUDY (CLEAR/HAZY); URINE BLOOD NEGATIVE (NEGATIVE); URINE COLOR YELLOW (YELLOW); URINE GLUCOSE NEGATIVE (NEGATIVE); URINE KETONE TRACE (NEGATIVE); URINE NITRATE NEGATIVE (NEGATIVE); URINE PROTEIN(semi-quant) NEGATIVE (NEGATIVE); URINE UROBILINOGEN 0.2 E.U/dL (0.2-1.0)
[2023-10-08 17:14] LABS: TRICYCLIC ANTIDEPRESS URINE NEGATIVE (NEGATIVE)
[2023-10-08] MEDS ORDERED: Iohexol 300 - 100 ML VIAL IV ONE (17:42)
[2023-10-08] MEDS ORDERED: NS 100 ML IV ONE (17:44)
[2023-10-08] MEDS ORDERED: PERCOCET 325 MG1 TA2 PO (18:57)
[2023-10-08] MEDS ORDERED: PROTONIX 40MG T40 MG PO (18:57)
[2023-10-08 19:09] VITALS: BP 121/87; PULSE 58
== END 2023-10-08 19:36 | disposition home or self-care (01) ==
LOC: COL.ER 13:43
PROVIDERS: Emergency Medicine
DX: K29.70 Gastritis, unspecified, without bleeding (principal); K44.9 Diaphragmatic hernia without obstruction or gangrene
CPT/HCPCS: C9113; J0360; J1170; J2405; J3010; Q9967

== ENCOUNTER → 2023-10-21 | Outpatient (CLI) | payer OTHER ==
[~2023-10-21] MED LIST changes: +PROTONIX 40MG T40 MG PO
== END ==
LOC: COL.RAD 10:29
DX: K44.9 Diaphragmatic hernia without obstruction or gangrene (principal)

== ENCOUNTER 2023-11-17 13:00 | Emergency (ER) | payer OTHER ==
[~2023-11-17] VITALS: Ht 160 cm; Wt 72.7 kg
[~2023-11-17 13:00] MED LIST changes: +ATARAX 10MG10 MG/TAB PO; +NORVASC 10MG10 MG PO; +ZANAFLEX2 MG PO; +ZOLOFT 25MG25 MG PO
[2023-11-17 13:03] VITALS: TEMP 97.9
[2023-11-17] MEDS ORDERED: Ibuprofen 600 MG TAB PO ONE (14:30)
[2023-11-17] MEDS ORDERED: Acetaminophen 500 MG TAB PO ONE (14:30)
[2023-11-17] MEDS ORDERED: dexAMETHasone 10 MG/ML VIAL IM ONE (14:45)
[2023-11-17 15:14] VITALS: BP 146/96; PULSE 62
== END 2023-11-17 15:14 | disposition home or self-care (01) ==
LOC: COL.ER 13:00
DX: M53.3 Sacrococcygeal disorders, not elsewhere classified (principal)
CPT/HCPCS: J1100

== ENCOUNTER → 2023-11-23 | Outpatient (CLI) | payer OTHER | LOC: COL.RAD 11:47 | DX: R10.11 Right upper quadrant pain (principal); R11.2 Nausea with vomiting, unspecified ==